=== PATIENT | female | born 1960 | race Hispanic/Latino ===

== ENCOUNTER 2017-03-25 12:33 | Inpatient (IN) | payer BC ==
[2017-03-25 12:47] VITALS: O2SAT 98
--- NOTE | 2017-03-25 12:50 | ED PDOC ---
Arrival/HPI - General Time Seen by Provider: 03/25/17 12:34 Historian: Other (Records from [facility]) - History of Present Illness Narrative History of Present Illness (Text): 03/25/17 12:46 56 y.o. female whose PMHx includes a learning disability but no other medical problems who is being transferred for psychiatric admission from [facility]. The patient was apparently [place] [address] direction with concern for a possible stress reaction and was evaluated at [facility]. She was accepted by Dr. Jerez for psychiatric admission. She denies any physical complaints at this time. Family/Social History Family/Social History: No Known Family HX Allergies/Home Meds Allergies/Adverse Reactions: Allergies Penicillins Allergy (Verified 03/25/17 12:47) RASH Home Medications: Home Meds Medication Instructions Recorded Confirmed Meloxicam [Mobic] 15 mg PO DAILY 03/25/17 03/25/17 Review of Systems - Physician Review All systems were reviewed & negative as marked: Yes - Review of Systems Constitutional: absent: Fevers Respiratory: absent: SOB Cardiovascular: absent: Chest Pain Gastrointestinal: absent: Abdominal Pain, Nausea, Vomiting Genitourinary Female: absent: Dysuria Hemo/Lymphatic: absent: Easy Bleeding Physical Exam Temperature: Afebrile Blood Pressure: Normal Pulse: Regular Respiratory Rate: Normal Appearance: Positive for: Well-Appearing, Non-Toxic, Comfortable Pain Distress: None Mental Status: Positive for: Alert and Oriented X 3 - Systems Exam Head: Present: Atraumatic, Normocephalic Pupils: Present: PERRL Conjunctiva: Present: Normal Mouth: Present: Moist Mucous Membranes Pharnyx: Present: Normal. No: ERYTHEMA, EXUDATE Neck: Present: Normal Range of Motion Respiratory/Chest: Present: Clear to Auscultation, Good Air Exchange. No: Respiratory Distress, Accessory Muscle Use Cardiovascular: Present: Regular Rate and Rhythm, Normal S1, S2. No: Murmurs Abdomen: Present: Normal Bowel Sounds. No: Tenderness, Distention, Peritoneal Signs Back: Present: Normal Inspection Upper Extremity: Present: Normal Inspection. No: Cyanosis, Edema Lower Extremity: Present: Normal Inspection. No: Edema Neurological: Present: GCS=15, CN II-XII Intact, Speech Normal Skin: Present: Warm, Dry, Normal Color. No: Rashes Psychiatric: Present: Alert, Oriented x 3 Medical Decision Making ED Course and Treatment: 03/25/17 12:51 Patient is transferred for psychiatric admission. She has been medically cleared at [facility] for psych admission. She denies any physical complaints at this time with unremarkable exam - will admit to Dr. Jerez's service. Disposition/Present on Arrival - Present on Arrival Any Indicators Present on Arrival: No - Disposition Have Diagnosis and Disposition been Completed?: Yes Diagnosis: Acute stress reaction Disposition: HOSPITALIZED Disposition Time: 12:45 Patient Plan: Admission Condition: FAIR
[2017-03-25] MEDS ORDERED: Magnesium Hydroxide Susp 30 ml UD PO PRN (14:53)
[2017-03-25] MEDS ORDERED: Alum-Mag Hydrox-Simethicone Susp (30 mL) PO PRN (14:53)
[2017-03-25 14:59] VITALS: TEMP 98.3
--- NOTE | 2017-03-25 20:43 | PCM.BM ---
<Ayleen Rosales - Last Filed: 03/25/17 20:40> Treatment Plan Problems - Problems identified on initial assessmt Depression Date Initiated: 03/25/17 Time Initiated: 20:41 Assessment reference: NA Status: Active hopelessness/helplessness Date Initiated: 03/25/17 Time Initiated: 20:41 Assessment reference: NA Status: Active stress disorder Date Initiated: 03/25/17 Time Initiated: 20:42 Assessment reference: NA Status: Active Treatment assets and liabiliti Patient Assests: adapts well, cooperative, educated, insightful, motivated, ADL independent, physically healthy, negotiates basic needs Patient Liabilities: physical pain, financial problems - Milieu Protocol Maintain good personal hygiene: daily Encourage regular showers, daily Remind patient to perform daily oral care, daily Assist patient to perform ADL's Maintain personal safety: every shift Educate patient to report safety concerns to staff, every shift Monitor environment for contraband/sharps Medication safety: Monitor for expected outcome, potential side effects: every shift, Assess barriers to learning: every shift, Assess readiness for medication education: every shift Discharge/Continuing Care - Education Needs Education Needs: Family Medication, Family Diagnosis/Disease Process, Family Coping Skills, Family Pain - Discharge Discharge Criteria: Tolerates medication w/o severe side effects, Ability to care for self Discharge to:: Home <Cornelius Wong - Last Filed: 03/26/17 11:49> - Diagnosis (1) Acute stress reaction Status: Acute <Charmaine Reese - Last Filed: 03/28/17 08:47> Family Contact Family contact: Patient agrees to contact Family contact name: Dimitris Padillanick() Andreea Grey(mother) Family contacted how many times per week?: 2 Family contact comment: "She's been under financial stress."
[2017-03-26 07:10] VITALS: RESP 18
[2017-03-26 09:18] LABS: BASO # 0.04 K/mm3 (0.0-2.0); BASO % 0.6 % (0.0-3.0); EOS # 0.2 (0.0-0.7); EOS % 2.3 % (1.5-5.0); GRAN # 5.06 (1.4-6.5); HEMATOCRIT 36.6 % (36.0-48.0); LYMPH % 14.6 % (22.0-35.0); MEAN CELL VOLUME 92.7 fl (80.0-105.0); MEAN CORPUSCULAR HEMOGLOBIN 31.9 pg (25.0-35.0); MEAN CORPUSCULAR HGB CONC 34.4 g/dl (31.0-37.0); MEAN PLATELET VOLUME 8.9 fl (7.0-11.0); MONO # 0.7 (0.1-0.6); MONO % 9.5 % (1.0-6.0); RED CELL DISTRIBUTION WIDTH 12.8 % (11.5-14.5); WHITE BLOOD COUNT 6.9 10^3/ul (4.5-11.0)
[2017-03-26 09:39] LABS: ALB/GLOB RATIO 1.3 (1.1-1.8); ALKALINE PHOSPHATASE 59 U/L (38-126); ALT/SGPT 55 U/L (7-56); AST/SGOT 77 U/L (14-36); BILIRUBIN,TOTAL 0.8 mg/dL (0.2-1.3); BLOOD UREA NITROGEN 17 mg/dL (7-21); CALCIUM 9.5 mg/dL (8.4-10.5); CARBON DIOXIDE 28 mmol/L (21-33); CHLORIDE 96 mmol/L (98-107); GFR AFRICAN-AMERICAN > 60; GLUCOSE,RANDOM 89 mg/dL (70-110); SODIUM 137 mmol/L (132-148); TOTAL PROTEIN 7.8 g/dL (5.8-8.3)
--- NOTE | 2017-03-26 10:20 | PCM.PSYCH ---
Initial Psychiatric Evaluation - Initial Psychiatric Evaluation Type of Admission: Voluntary Legal Status: Capacity History of Present Illness and Precipitating Events: Patient is a 56-year-old female with a history of learning disability who is brought to the ER at [facility] by the police secondary to a erratic driving on [place] [address]. [facility] paperwork indicates the patient was taking wrong turns and driving against the traffic. Patient was seen by Dr. Jerez in the ER at [facility]. He gave her a diagnosis of acute stress reaction, learning disorder NOS, R/O Aspergers Syndrome, rule out undefined organic mental disorder. Dr. Jerez recommended hospitalization for several days of observation to rule out possible suicidal behavior in the context of acute personal stress. I reviewed [place] paperwork, recent notes on the unit and met with patient at bedside. She is groomed, alert and oriented to date month year and circumstances. Focus and eye contact are good. Patient reports the presence of financial stressors as well as difficulty in caring for her who suffered a stroke 14 years ago. Presently she reports improvement in mood and anxiety symptoms. She is feeling less stressed, overwhelmed and in better control. She is not hopeless and does not want to . She denies having any suicidal thoughts. Patient also defers on any medication management. Would like to be discharged however indicates willingness to stay on the unit for one more day for observation. There have been no behavioral issues on the unit thus far. PSYCHIATRIC HISTORY Patient denies any prior psychiatric hospitalizations. She denies any prior medication trials and she denies any history of suicide attempts SOCIAL HISTORY Patient was adopted and raised in [place]. She's been for the last 28 years. She has no children due to infertility. Patient lives with her who is disabled due to a stroke 14 years ago. 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 She also works as a [employer] and collects disability for her learning disability Patient denies any history of alcohol or drug issues. She does not smoke tobacco. Current Medications: Active Medications Generic Name Dose Route Start Last Admin Trade Name Freq PRN Reason Stop Dose Admin Acetaminophen 650 mg 03/25/17 14:53 03/25/17 20:23 Tylenol 325mg Tab PO 650 mg Q4 PRN Administration Pain, moderate (4-7) Al Hydrox/Mg Hydrox/Simethicone 30 ml 03/25/17 14:53 Maalox Plus 30 Ml PO DAILY PRN Upset Stomach Lorazepam 0.5 mg 03/25/17 19:54 Ativan PO Q12 PRN Anxiety Protocol Magnesium Hydroxide 30 ml 03/25/17 14:53 Milk Of Magnesia PO DAILY PRN Constipation Zaleplon 5 mg 03/25/17 19:53 03/25/17 22:07 Sonata PO 5 mg HS PRN Administration Insomnia Past Psychiatric History - Past Psychiatric History Pertinent Medical Hx (Current Medical&Sleep Prob, Allergies): Allergies Allergy/AdvReac Type Severity Reaction Status Date / Time Penicillins Allergy RASH Verified 03/25/17 12:47 Meloxicam [Mobic] 15 mg PO DAILY 03/25/17 Mental Status Examination - Affect Affect: Constricted - Motor Activity Motor Activity: Calm - Reliability in Providing Information Reliability in Providing Information: Fair - Speech Speech: Organized - Mood Mood: Neutral - Formal Thought Process Formal Thought Process: No Impairment - Obsessions/Compulsions Obsessions: No Compulsions: No - Cognitive Functions Orientation: Person, Place, Situation Sensorium: Alert Attention/Concentration: Attentive Estimate of Intelligence: Average - Risk Risk: Diminished functioning - Strength & Assets Inventory Strength & Assets Inventory: Family support - Limitations Limitations: Decreased memory, recent DSM 5 DX - DSM 5 DSM 5 Diagnosis: Acute stress reaction Learning disorder NOS R/O Aspergers Syndrome Rule out undefined organic mental disorder - Recommended/Plan of Treatment Treatment Recommendations and Plan of Treatment: * grp, milieu and supportive tx * Hold on medication management per patient preference * Awaiting medical f/u * Vitals reviewed and noted below: Selected Entries 03/25/17 03/25/17 03/26/17 14:00 17:00 07:09 Temperature 98.3 F 98.3 F Pulse Rate 90 79 Respiratory 18 20 18 Rate Blood Pressure 142/93 H 106/65 [facility] LAB RESULTS AND STUDIES, SUMMARIZED BELOW Head CT: No acute intracranial abnormality CXR: No congestion, pneumonia or pneumothorax [place]=268M UREA 20H Sodium 134L Chloride 97L Glucose 108H LFTS wnl WBC, Hg/HCT, PLTS wnl Lactic Acid wnl BAL<10 [facility] Laboratory Results - last 24 hr 03/26/17 03/26/17 08:50 08:50 WBC 6.9 RBC 3.95 Hgb 12.6 Hct 36.6 MCV 92.7 MCH 31.9 MCHC 34.4 RDW 12.8 Plt Count 348 MPV 8.9 Gran % 73.0 H Lymph % (Auto) 14.6 L Knott % (Auto) 9.5 H Eos % (Auto) 2.3 Baso % (Auto) 0.6 Gran # 5.06 Lymph # 1.0 L Knott # 0.7 H Eos # 0.2 Baso # 0.04 Sodium 137 Potassium 4.0 Chloride 96 L Carbon Dioxide 28 Anion Gap 17 BUN 17 Creatinine 0.6 Est GFR ( Amer) > 60 Est GFR (Non-Af Amer) > 60 Random Glucose 89 Calcium 9.5 Total Bilirubin 0.8 AST 77 H ALT 55 Alkaline Phosphatase 59 Total Protein 7.8 Albumin 4.4 Globulin 3.4 Albumin/Globulin Ratio 1.3 - Smoking Cessation Smoking Cessation Initiated: No Reason for not providing: Patient doesn't smoke tobacco
--- NOTE | 2017-03-27 02:45 | CON ---
DATE: HISTORY OF PRESENT ILLNESS: The patient is 56 years old, seen and examined, does not know why she is here. She states she resides in [place] and she was walking around outside, felt confused, so ambulance was called for her and she was brought to [place], where she was admitted in psychiatric unit and from there she is transferred to [facility]. The patient does not give much history. She denies any medical issues; however, information collected from ER notation that patient has learning disability and the patient was driving [address] [facility] [address] wrong direction. She was brought to [place] from where she was transferred here. PAST MEDICAL HISTORY: She has no significant past medical history. MEDICATIONS: She denies taking any medication. ALLERGIES: SHE IS ALLERGIC TO PENICILLIN THAT GIVES HER RASH. PAST SURGICAL HISTORY: Her surgical history significant for right knee replacement and she is on Mobic for that. SOCIAL HISTORY: The patient claims that she is , lives with her , they have no children and does work in . PHYSICAL EXAMINATION: GENERAL: She is awake and alert, communicative. VITAL SIGNS: She is afebrile, pulse 79, respirations 18, and blood pressure 106/65. HEART: S1 and S2 audible. LUNGS: Bilateral fair airflow. No rhonchi or crackles. ABDOMEN: Soft and nontender. No rebound. No guarding. NEUROLOGIC: The patient is awake and alert, communicative. LABORATORY DATA: WBC 6.9, hemoglobin 12.6, hematocrit 36 and platelets 348. Chemistry; sodium 137, potassium 4.0, chloride 96, CO2 of 28, BUN 17, creatinine 0.6 and blood sugar of 89. LFTs are within normal limits. ASSESSMENT: 1. Learning disability. 2. Right knee osteoarthritis. 3. Anxiety disorder. PLAN: At this point, the patient takes Mobic at home; although, we do not have available here. If it is available that can be given in the dose of 15 mg daily, if not then we can give Naprosyn. Thanks for the consult and we will follow up with you. Guero Ramos MD [facility] # [id number]
[2017-03-27 16:11] VITALS: BP 121/69; PULSE 75
--- NOTE | 2017-03-27 16:40 | PCM.PYCHDC ---
Mental Status Examination - Mental Status Examination Orientation: Person, Place, Time Memory: Intact Mood: Neutral Affect: Flat Speech: Soft Attention: WNL Concentration: WNL Association: WNL Fund of Knowledge: Poor Formal Thought Process: No Impairment, Circumstantial Description of patient's judgement and insight: Impaired Psychotic Thoughts and Behaviors: Not psychotic a time of discharge Suicidal Ideation: No Current Homicidal Ideation?: No Discharge Summary - Discharge Note Reason for Hospitalization: Patient had initially been seen at [facility] after having been brought by state police. She had been driving on the [facility] [employer] [address] and made a wrong turn on six occasions and seemed uncorrectable. Police brought patient to the emergency room where she appeared to be a poor historian and in a somewhat poor historic reciting state. She was then transferred to [facility] for further observation and possible treatment During her hospital emergency room stay her family Prezzys her adopted mother and parentheses and brother was consulted.Patients only prior psychiatric history was talking to a counselor approximately 14 years ago after her had a stroke. Since that time according to the patient's mother the patient had become more dependent on her and more anxious. The patient has a history of an undefined learning disability and was in special -education. 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 though her mother denies this. Psychiatric History (includes Medical, Family, Personal Hx): Patients only prior psychiatric history was talking to a counselor approxim Laboratory Data: Abnormal Lab Results 03/26/17 08:50 RPR Nonreactive Consultations:: List each consultation separately and include: 1. Reason for request. 2. Findings. 3. Follow-up Summary of Hospital Course include:: 1. Description of specific treatment plan utilized for patients during their course of treatmen. 2. Summarize the time- course for resolution of acute symptoms and/or regressed behaviors. 3. Describe issues identified and worked on during hospitalization. 4. Describe medication utilized. 5. Describe medical problems identified and treated. 6. Reassessment of suicide risk Summary of Hospital Course: Patient was somewhat agitated the first day but by date to return to a more normative state. She was interviewed in treatment team and appeared to be normative although not particularly forthcoming the fax to [facility] but intellect. Case was discussed with mother. - Diagnosis (1) Acute stress reaction Current Visit: Yes Status: Resolved Priority: High - Final Diagnosis (DSM 5) Condition upon Discharge: FAIR Disposition: HOME/ ROUTINE Follow-up Treatment Plan: Suggested outpatient therapist. Name of Dr. vigil space KH a SO GG I in [facility] given. - Antipsychotic Medications Pt discharged on 2 or more routine antipsychotic medications: No
== END 2017-03-27 20:12 | disposition home or self-care (01) | DRG 880 ==
LOC: ED 12:33 → PSYC 12:44 → ED 13:20
PROVIDERS: ADMIT Psychiatry & Neurology Addiction Medicine; ATTEND Psychiatry & Neurology Addiction Medicine
DX: F43.0 Acute stress reaction (principal); F41.9 Anxiety disorder, unspecified; F81.9 Developmental disorder of scholastic skills, unspecified; M17.11 Unilateral primary osteoarthritis, right knee; Z79.1 Long term (current) use of non-steroidal anti-inflammatories (NSAID); Z96.651 Presence of right artificial knee joint; Z88.0 Allergy status to penicillin